=== PATIENT | female | born 1940 | race Caucasian/White ===

== ENCOUNTER 2016-08-11 18:56 | Emergency (ER) | payer MEDICARE ==
[2016-08-11 14:55] LABS: BASOPHILS 0.2 %; BASOPHILS ABSOLUTE 0.01 10/3/uL (0.0-0.16); EOSINOPHILS 1.7 %; EOSINOPHILS ABSOLUTE 0.07 10/3/uL (0.0-0.53); ER CBC TAT 0 Hrs 07 Mins; HEMATOCRIT 40.7 % (36.0-48.0); HEMOGLOBIN 13.1 g/dL (12.0-16.0); IMMATURE GRANULOCYTES 0.2 %; IMMATURE GRANULOCYTES ABSOLUTE 0.01 10/3/uL (0.0-0.11); LYMPHOCYTES 20.6 %; LYMPHOCYTES ABSOLUTE 0.87 10/3/uL (0.67-4.30); MEAN CORPUS HGB CONC 32.2 g/dL (32.0-36.0); MEAN CORPUSCULAR HEMOGLOB 30.5 pg (26.0-34.0); MEAN CORPUSCULAR VOLUME 94.9 fL (80-100); MEAN PLATELET VOLUME 9.6 fL (9.2-13.0); MONOCYTES 6.2 %; MONOCYTES ABSOLUTE 0.26 10/3/uL (0.21-1.20); NEUTROPHILS 71.1 %; PLATELET COUNT 107 10/3/uL (150-400); RBC DISTRIBUTION WIDTH 14.8 % (12.0-16.0); RED CELL COUNT 4.29 10/6/uL (4.0-5.6); WHITE BLOOD CELLS 4.2 10/3/uL (4.5-10.5)
[2016-08-11 14:56] LABS: MANUAL DIFF NO %
[2016-08-11 15:03] LABS: INTERNATIONAL NORMAL RATI 1.2 UNITS (-); PARTIAL THROMBO TIME 27.8 SEC (22.5-37.2); PROTIME (NOT ORD) 14.6 SEC (12.0-14.5)
[2016-08-11 15:11] LABS: BUN (BLOOD UREA NITROGEN) 24 MG/DL (6-23); CALCIUM, SERUM 8.3 MG/DL (8.5-10.4); CHEST PAIN PROFILE TAT 0 Hrs 23 Mins; CHLORIDE, SERUM 107 MMOL/L (96-112); CO2 (CARBON DIOXIDE) 28 MMOL/L (24-34); CREATININE 1.11 MG/DL (0.55-1.02); GFR AFRICAN AMERICAN 56 ML/MIN (>=60); GFR NON AFRICAN AMERICAN 49 ML/MIN (>=60); GLUCOSE, SERUM 94 MG/DL (60-99); POTASSIUM, SERUM 3.8 MMOL/L (3.5-5.3); SODIUM, SERUM 143 MMOL/L (135-148); TROPONIN I 0.02 NG/ML (<0.05)
[~2016-08-11 18:56] MED LIST: ALAVERT10 MG PO; ASAB PO; B121000P IM; CAT1 PO; CENTRUM PO; CENTRUM SILVER PO; CORDARONE PO; CYMBALTA30 PO; CYMBALTA60 PO; FERREX 150150 MG PO; HYOMAX-FT0.125 MG PO; HYOMAX-SL0.125 MG PO; KLONO1 PO; L20 PO; LEVOTHYROXIN50 MCG PO; LIPITOR10 PO; LOP25 PO; LOTEMAX OPH SUSP5 ML OPH; MAX25 PO; MELA3 PO; METAMUCIL CAN7 OZ PO; MIRALAXPKT PO; PACERONE100 MG PO; PAXIL40 MG PO; PRILO PO; PROAIR HFA INH; REQUIP5 PO; SYMBICORT 160/41 INH INH; T PO; TRAZ100 PO; TRAZ50 PO; TRAZODONE150 MG PO; VITAMIN B-122500 MCG SL; VITAMIN D1000 UNI1 PO
[2017-01-23] MEDS ORDERED: PRIN2.5 PO (16:33)
[2017-01-23] MEDS ORDERED: VITAMIN B-122500 MCG SL (16:34)
== END 2016-08-11 20:16 | disposition home or self-care (01) ==
LOC: ER 18:56
PROVIDERS: Hospitalist
DX: I95.9 Hypotension, unspecified (principal); I48.91 Unspecified atrial fibrillation; Z88.0 Allergy status to penicillin; Z88.2 Allergy status to sulfonamides; Z88.1 Allergy status to other antibiotic agents; Z88.8 Allergy status to other drugs, medicaments and biological substances; Z79.899 Other long term (current) drug therapy
CPT/HCPCS: 71020; 80048; 83735; 84484; 85025; 85610; 85730; 93005; 99285

== ENCOUNTER 2016-08-27 08:15 | Inpatient (IN) | payer MEDICARE ==
--- NOTE | ~2016-08-27 | CN ---
Consultation Report [facility] [address] [place]. [address] NAME: OTF HILL : 40 STATUS : ADM IN [facility]#: [id number] AGE: 75 ADM/REG DATE : 08/27/16 MR#: [id number] REPORT SERV DATE: 08/28/16 DICTATED BY: TOBIAS AGUSTIN DATE: 08/28/16 REPORT STATUS : Draft TRANSCRIBED BY: MODL DATE: 08/28/16 CARDIOLOGY CONSULTATION DATE OF CONSULTATION: 08/28/2016 PRIMARY SECRETARY TO THE VICE PRESIDENT: Tobias Agustin MD RIVET HEATER: Dr. Pearson. CHIEF COMPLAINT: Shortness of breath. REASON FOR ADMISSION: Shortness of breath. SOURCE: Patient chart. HISTORY OF PRESENT ILLNESS: Ms. Hill is a very pleasant 75-year-old white woman with history of ventricular tachycardia, atrial flutter, and AVNRT, status post ablation by Dr. Pearson and ICD placement. She also has hypertrophic cardiomyopathy. She was in her usual state of health when I saw her on 08/25/2016. Since that time, she has had increasing shortness of breath and faster heart rate, not much cough. She has noticed some wheezing and ankle swelling. She has been losing weight. She denies any fever or chills. She has had some palpitations, but no syncope. She has been dizzy. No chest pain. She came to [facility], was found to have acute respiratory insufficiency, and was hospitalized in ICU and seen by Dr. Braga of Pulmonary Critical Care Medicine. She was given antibiotic therapy and diuretics. She is improved a little bit. REVIEW OF SYSTEMS: All other systems are negative. ALLERGIES: PENICILLIN, SULFA, ASPIRIN, ERYTHROMYCIN, METOPROLOL, AND DIPHENHYDRAMINE. MEDICATIONS: At home, included Artificial Tears, atorvastatin, cholecalciferol, clonazepam, cyanocobalamin, duloxetine, famotidine, iron, melatonin, polyethylene glycol, Ropinirole, sotalol 40 b.i.d., trazodone, CertaVite, and Tesfaye. CARDIAC RISK FACTORS: Not really any cardiac risk factors other than hyperlipidemia. PAST MEDICAL HISTORY: Includes SVT and atrial flutter, atypical, status post ablations by Dr. Pearson; ventricular tachycardia, status post ICD placement; hypertrophic cardiomyopathy; aortic insufficiency mild to moderate by most recent echo with normal LV systolic function; hypothyroidism; orthostatic hypotension; hyperlipidemia. She had only mild irregularities of catheterization in 2008. SOCIAL HISTORY: Never smoker. Denies any alcohol. Lives in [facility]. . Consultation Report [address] [place]. [address] NAME: OTF HILL : 40 STATUS : ADM IN [facility]#: [id number] AGE: 75 ADM/REG DATE : 08/27/16 MR#: [id number] REPORT SERV DATE: 08/28/16 DICTATED BY: TOBAIS AGUSTIN DATE: 08/28/16 REPORT STATUS : Draft TRANSCRIBED BY: FRANKLYN DATE: 08/28/16 One son, who is alive and well. She is retired. FAMILY HISTORY: Negative for coronary disease at young age. PHYSICAL EXAMINATION: GENERAL: She is a well-developed, well-nourished, elderly white woman, appearing acutely ill, in no acute distress. VITAL SIGNS: Blood pressure of 125/66, pulse 69, temperature 97.9, weight is 73 kilos. HEENT: Sclerae anicteric. Lips without cyanosis. NECK: Carotids 2+ and symmetrical. No bruits. No JVD. No thyromegaly. LUNGS: Wheezes and rhonchi throughout. Diminished breath sounds at bases. No use of accessory muscles. She is on a Vapotherm with 30 L oxygen. HEART: Regular rate and rhythm, 2/6 systolic murmur. No heaves or thrills. ABDOMEN: Positive bowel sounds. Soft, nontender. EXTREMITIES: Pulses 2+ and symmetrical. No cyanosis, clubbing, or edema. BACK: No CVA tenderness. MUSCULOSKELETAL: Good tone. NEURO: Alert and oriented x3. EKG reveals atrial sensed, V-paced rhythm with prolonged AV conduction. LABORATORY EXAMINATION: Includes a BNP level of 1621, CPK 51, troponin of 0.04. The chest x ray revealing worsening bilateral perihilar and lower lobe consolidation and pleural effusions with underlying cardiomegaly, Strep pneumoniae antigen is negative, Legionella antigen urine is negative. Urinalysis; specific gravity 1.026, pH 5.0, hazy, moderate blood, small leukocyte esterase, negative nitrate, rbc's 20, wbc's 5, bacteria rare. Blood gas; pH 7.45, pCO2 35, PO2 240, oxygen saturation 99%. Sodium 140, potassium 3.9, chloride 109, CO2 27, glucose 142, BUN 21, creatinine 1.32. CBC: White count 13.3, hemoglobin 13.9, hematocrit 41.7, platelets 105,000. Lactate 1.3. The CTA of the chest revealed diffuse bilateral infiltrate and consolidation consistent with pneumonia, could obscure visualization of other possible underlying abnormalities, bilateral pleural fluid, pericardial fluid, slight cardiomegaly, nonspecific mediastinal lymph nodes less than 1 cm. IMPRESSION: 1. Suspect bilateral pneumonia by CT scan. 2. Congestive heart failure, acute on chronic diastolic dysfunction. Last LVEF was normal in 2016 by echo. 3. Atrial flutter and AVNRT, status post ablation by Dr. Pearson. 4. Status post ICD placement [employer]annie device for ventricular tachycardia. 5. Mfcd-tj-gwirdhrd aortic insufficiency by last echo. 6. Hypertrophic cardiomyopathy. 7. Acute kidney injury. 8. Acute respiratory insufficiency, on Vapotherm. RECOMMENDATIONS: Consultation Report [address] [address] NAME: OTF HILL : 40 STATUS : ADM IN [facility]#: [id number] AGE: 75 ADM/REG DATE : 08/27/16 MR#: [id number] REPORT SERV DATE: 08/28/16 DICTATED BY: TOBIAS AGUSTIN DATE: 08/28/16 REPORT STATUS : Draft TRANSCRIBED BY: NATALYAL DATE: 08/28/16 1. Treat possible pneumonia per ICU team. 2. Cautious diuresis, avoid volume depletion. 3. Check echocardiogram, this has been done, but not yet read. 4. ICD check with [employer]. 5. Supplemental oxygen. 6. Further recommendations following above. BN/MODL Tobias Agustin M.D. / [id number] CC: MD Arsen Mitchell M.D.
--- NOTE | ~2016-08-27 | HP ---
History And Physical [address] [place]. [address] NAME: OTF WEBBER : 40 STATUS : ADM IN PAT#: [id number] AGE: 75 ADM/REG DATE : 08/27/16 MR#: [id number] REPORT SERV DATE: 08/27/16 DICTATED BY: PARRIS ANDREWS DATE: 08/27/16 REPORT STATUS : Draft TRANSCRIBED BY: MODAzeb DATE: 08/27/16 DATE OF ADMISSION: 08/27/2016 CHIEF COMPLAINT: Shortness of breath. HISTORY OF PRESENT ILLNESS: The patient is a 75-year-old female with a past medical history of ventricular tachycardia, status post ICD, pacemaker placement also with paroxysmal atrial tachycardia, who is admitted to the hospital with complaints of shortness of breath. The patient says that she was in her usual state of health until approximately two days ago when she began having some shortness of breath. This has increased over the last two days to the point where she was short of breath at baseline and decided to come here to the emergency room. She notes a cough that has really been nonproductive, though she says she can feel some phlegm getting caught in her throat. She has been unable to expectorate any of that. She denies any real significant chest pain. She denies any fevers, chills, or sweats. She denies sick contacts or recent travel. She does endorse that when she lies flat, she gets short of breath and she reports no increase and stable mild chronic lower extremities edema, for which she wears compression stockings. She says the only thing of note was that last Sunday, her carpenter form switched her from amiodarone to Betapace. Otherwise, she cannot think of anything remarkable that happened in the last week or two. In the emergency room here, she was found to be hypoxic and was placed on non-rebreather, but eventually had to be transitioned over to BiPAP. She has a chest CT that shows bilateral diffuse evidence of airspace disease with bilateral pleural effusions. She is being admitted to the CCU for further management. PAST MEDICAL HISTORY: 1. History of ventricular tachycardia, status post ICD placement. 2. History of paroxysmal atrial tachycardia. 3. Hyperlipidemia. 4. Hypothyroidism. 5. Gastroesophageal reflux disease. 6. History of depression. 7. Restless legs syndrome. 8. Chronic anxiety. ALLERGIES: INCLUDE PENICILLIN, SULFA, AND ASPIRIN, WELL ERYTHROMYCIN, METOPROLOL, AND DIPHENHYDRAMINE. HOME MEDICATIONS: Include: 1. Requip 0.5 mg p.o. at bedtime. 2. Trazodone 100 mg p.o. at bedtime. 3. Clonazepam 0.5 mg p.o. at bedtime as needed. 4. Clonazepam 0.5 mg at bedtime schedule. 5. Sotalol 40 mg p.o. twice daily. 6. Cymbalta 60 mg p.o. twice daily. 7. Ferrex 150 mg p.o. twice daily. 8. Melatonin 5 mg p.o. at bedtime. History And Physical [address] [address] NAME: OTF WEBBER : 40 STATUS : ADM IN [facility]#: [id number] AGE: 75 ADM/REG DATE : 08/27/16 MR#: [id number] REPORT SERV DATE: 08/27/16 DICTATED BY: PARRIS ANDREWS DATE: 08/27/16 REPORT STATUS : Draft TRANSCRIBED BY: FRANKLYN DATE: 08/27/16 9. Pepcid 20 mg p.o. daily. 10.Vitamin D 4000 units p.o. at bedtime. 11.Vitamin B12 2500 mcg sublingual at bedtime. 12.MiraLAX powder 1 packet daily as needed. 13.Lipitor 10 mg p.o. at bedtime. SOCIAL HISTORY: No tobacco, alcohol, or IV drug abuse. FAMILY HISTORY: Reviewed and negative for coronary disease or intrinsic lung disease. PHYSICAL EXAMINATION: VITAL SIGNS: Temperature 98.9, heart rate 70, respiratory rate 25, blood pressure 122/64. GENERAL: No acute distress, resting on BiPAP, elderly-appearing female. HEENT: Pupils equal, round, and reactive to light. Extraocular movements intact. NECK: Supple. Nontender. No lymphadenopathy. No thyromegaly. No jugular venous distention. LUNGS: Coarse crackles bilaterally. No wheezes. CARDIOVASCULAR: Regular rate and rhythm. No murmurs, rubs, or gallops. ABDOMEN: Soft, nontender, nondistended. Positive bowel sounds. No hepatosplenomegaly. EXTREMITIES: Trace pitting edema in bilateral lower extremities and feet. NEURO: Alert and oriented x3. Cranial nerves appear intact. PSYCH: Mood appropriate. LABS AND IMAGING: Urinalysis with trace leukocyte esterase, otherwise unremarkable. Chest x ray shows diffuse bilateral interstitial edema or infiltrate with some left basilar atelectasis and AICD placement. D-dimer 2.53, BNP 1621. Metabolic profile remarkable for creatinine of 1.2. Lipase 60. White blood cell count 7.9 with 86% neutrophils. Influenza screen negative. CT angiogram of her chest shows diffuse bilateral patchy airspace disease with bilateral pleural effusions. ABG with a pH 7.32, pCO2 of 38, pO2 of 88 on 80% FiO2 on BiPAP. ASSESSMENT AND PLAN: The patient is a 75-year-old female with past medical history of paroxysmal atrial tachycardia, ventricular tachycardia, status post automatic implantable cardioverter-defibrillator placement, who presents with two days of shortness of breath, nonproductive cough, found to have acute hypoxic respiratory failure with diffuse bilateral airspace disease and bilateral pleural effusions. I performed a bedside lung ultrasound as well as echocardiogram, which showed an ejection fraction by my estimate of greater than 40%. Her lung exam on ultrasound showed bilateral B-lines, left greater than right with bilateral pleural effusions, left greater than right with bibasilar consolidation. She also had some small areas of subpleural consolidation bilaterally as well with good lung sliding and some areas of spared lung. Her lung ultrasound is consistent with a mixed picture of cardiogenic pulmonary edema in addition to acute respiratory distress syndrome. Given that there is a component of cardiogenic pulmonary edema, we will continue BiPAP for now overnight. We will continue diuresis in an attempt to improve her respiratory status. We will also cover empirically with antibiotics for community-acquired pneumonia and acute respiratory distress syndrome. We will put her on azithromycin and Rocephin and check a procalcitonin as well as a sputum culture and blood cultures. We will also get a urine History And Physical [address] [address] NAME: OTF WEBBER NOAH : 40 STATUS : ADM IN [facility]#: [id number] AGE: 75 ADM/REG DATE : 08/27/16 MR#: [id number] REPORT SERV DATE: 08/27/16 DICTATED BY: PARRIS ANDREWS DATE: 08/27/16 REPORT STATUS : Draft TRANSCRIBED BY: FRANKLYN DATE: 08/27/16 Legionella antigen and urine Strep pneumo antigen. We will get a formal echocardiogram in the morning and trend her cardiac markers q.8 hours x3. If she improves, we will try to transition her from BiPAP to Vapotherm when she is able to tolerate. We will also place her on steroids for severe community-acquired pneumonia with acute respiratory distress syndrome. The patient has a high probability of sudden, clinically significant, or life- threatening deterioration in her condition and I would have a low threshold to intubate the patient should her respiratory status worsen. I have discussed this with the patient and she is agreeable to be intubated should she require that. She will be on heparin for deep vein thrombosis prophylaxis and Protonix for gastrointestinal prophylaxis. Total critical care time spent on this patient was 40 minutes. HUBERT/FRANKLYN Parris Andrews MD / [id number] CC: MD Arsen Mitchell M.D.
--- NOTE | ~2016-08-27 | DS ---
Discharge Summary [facility] [address] [place]. [address] NAME: OTF WEBBER : 40 STATUS : DIS IN PAT#: [id number] AGE: 75 ADM/REG DATE : 08/27/16 MR#: [id number] REPORT SERV DATE: 09/02/16 DICTATED BY: JOON LIVINGSTON DATE: 09/02/16 REPORT STATUS : Draft TRANSCRIBED BY: MODL DATE: 09/02/16 ADMISSION DATE: 08/27/2016 DISCHARGE DATE: 09/02/2016 DISCHARGE DIAGNOSES: 1. Atypical bilateral pneumonia. 2. Acute on chronic diastolic congestive heart failure. 3. Pulmonary edema. 4. Acute hypoxic respiratory failure. 5. Atrial flutter. 6. Hypertrophic cardiomyopathy. 7. Acute kidney injury. 8. The patient has implantable cardiac defibrillator. CONSULTS: 1. Critical Care. 2. Cardiology. PROCEDURES AND IMAGING: Echocardiogram performed on 08/28/2016 showed a normal LV systolic function with ejection fraction of 55%. The patient did have asymmetric septal moderate hypertrophy. The patient also had moderate diastolic dysfunction. This was not a significant change compared to previous echocardiogram one year ago. HOSPITAL COURSE: This is a 75-year-old lady who was admitted to the hospital with acute hypoxic respiratory failure. For details, please refer to H and P by Dr. Braga. In summary, the patient was admitted to the intensive care unit as the patient required BiPAP support. The patient stayed in the intensive care unit for three days before the patient was transferred out on Vapotherm. The patient never required mechanical ventilation. The patient was treated empirically for community-acquired pneumonia as well as diastolic congestive heart failure. Of note, the patient has had normal white blood cell count as well as negative procalcitonin level throughout the hospital stay. I assumed care of this patient on 08/30/2016. At that time, the patient remained on Vapotherm. Over the last few days of hospital stay, the patient showed a very rapid improvement of her symptoms overall. The patient was actually able to come off the oxygen entirely the day prior to discharge and she remained off oxygen until the day of discharge. The patient was actually evaluated for home oxygen and the patient passed home O2 eval with flying colors. It is still not entirely clear what really caused her to decompensate so rapidly, but now that the patient has completed a week's course of antibiotic therapy and after much clinical improvement, it was felt that the patient was appropriate for discharge home with close outpatient followup. DISPOSITION: Home. DISCHARGE MEDICATIONS: No changes. FOLLOWUP: Please follow up with PCP in the next one to two weeks. Discharge Summary [address] [place]. [address] NAME: OTF WEBBER : 40 STATUS : DIS IN PAT#: [id number] AGE: 75 ADM/REG DATE : 08/27/16 MR#: [id number] REPORT SERV DATE: 09/02/16 DICTATED BY: JOON LIVINGSTON DATE: 09/02/16 REPORT STATUS : Draft TRANSCRIBED BY: FRANKLYN DATE: 09/02/16 TIME: Total of 40 minutes spent in coordinating this patient's discharge today. MALINDA/FRANKLYN Joon Livingston MD / [id number] CC: MD Arsen Mitchell M.D.
[2016-08-27 08:35] LABS: ALLENS TEST Pos; BE (BASE EXCESS) -2.2 MEQ/L (0 +/- 2.5); CARBOXYHEMOGLOBIN 1.2 % (0-3); HEMOBLOGIN CONTENT 13.7 G/DL (12-16); INSTRUMENT SERIAL # 8087; METHEMOGLOBIN 0.3 % (0-3); O2 CONTENT 15.4 VOL% (18-24); OPERATOR ID 32214; PCO2 (CO2 TENSION) 36 MMHG (35-45); PO2 (O2 TENSION) 47 MMHG (79-93); SAMPLE Arterial
[2016-08-27 09:24] LABS: BASOPHILS 0.5 %; BASOPHILS ABSOLUTE 0.04 10/3/uL (0.0-0.16); EOSINOPHILS 0.1 %; EOSINOPHILS ABSOLUTE 0.01 10/3/uL (0.0-0.53); HEMATOCRIT 41.8 % (36.0-48.0); HEMOGLOBIN 13.4 g/dL (12.0-16.0); IMMATURE GRANULOCYTES 0.1 %; IMMATURE GRANULOCYTES ABSOLUTE 0.01 10/3/uL (0.0-0.11); LYMPHOCYTES 9.1 %; LYMPHOCYTES ABSOLUTE 0.72 10/3/uL (0.67-4.30); MEAN CORPUS HGB CONC 32.1 g/dL (32.0-36.0); MEAN CORPUSCULAR HEMOGLOB 29.9 pg (26.0-34.0); MEAN CORPUSCULAR VOLUME 93.3 fL (80-100); MEAN PLATELET VOLUME 10.4 fL (9.2-13.0); MONOCYTES 3.9 %; MONOCYTES ABSOLUTE 0.31 10/3/uL (0.21-1.20); NEUTROPHILS 86.3 %; NEUTROPHILS ABSOLUTE 6.83 10/3/uL (2.02-8.40); PLATELET COUNT 124 10/3/uL (150-400); RBC DISTRIBUTION WIDTH 15.3 % (12.0-16.0); RED CELL COUNT 4.48 10/6/uL (4.0-5.6)
[2016-08-27 09:25] LABS: MANUAL DIFF NO %; WHITE BLOOD CELLS 7.9 10/3/uL (4.5-10.5)
[2016-08-27 09:29] LABS: ASCORBIC ACID (UR NOT ORDER) 40 (NEG); BILIRUBIN, URINE NEGATIVE (NEG); ER URINALYSIS TAT 0 Hrs 08 Mins; KETONE, URINE TRACE MG/DL (NEG); LEUKOCYTE ESTERASE(NOT OR TRACE (NEG); NITRITE (URINE) NEG (NEG); WBC (NOT ORDERED) (RFLEX) 3 (0-5)
[2016-08-27 09:38] LABS: INTERNATIONAL NORMAL RATI 1.2 UNITS (-); PROTIME (NOT ORD) 15.1 SEC (12.0-14.5)
[2016-08-27 09:42] LABS: CALCIUM, SERUM 8.7 MG/DL (8.5-10.4); CHEST PAIN PROFILE TAT 0 Hrs 21 Mins; CHLORIDE, SERUM 111 MMOL/L (96-112); CO2 (CARBON DIOXIDE) 25 MMOL/L (24-34); GFR AFRICAN AMERICAN 51 ML/MIN (>=60); GFR NON AFRICAN AMERICAN 44 ML/MIN (>=60); GLUCOSE, SERUM 110 MG/DL (60-99); POTASSIUM, SERUM 4.2 MMOL/L (3.5-5.3); SODIUM, SERUM 146 MMOL/L (135-148); TROPONIN I 0.03 NG/ML (<0.05)
[2016-08-27 09:44] LABS: BUN (BLOOD UREA NITROGEN) 17 MG/DL (6-23)
[2016-08-27 09:46] LABS: B NATRIURETIC PEPTIDE (BNP) 1621.2 PG/ML (< 100.0)
[2016-08-27 11:10] LABS: INFLUENZA A SCREEN NEGATIVE (NEGATIVE); INFLUENZA B SCREEN NEGATIVE (NEGATIVE)
[2016-08-27] MEDS ORDERED: REQUIP5 PO (13:13)
[2016-08-27] MEDS ORDERED: TRAZ100 PO (13:13)
[2016-08-27] MEDS ORDERED: B121000P IM (13:13)
[2016-08-27] MEDS ORDERED: KLONO5 PO ×2 (13:14)
[2016-08-27] MEDS ORDERED: FERREX 150150 MG PO (13:15)
[2016-08-27] MEDS ORDERED: BETAPACE80 PO ×2 (13:15)
[2016-08-27] MEDS ORDERED: CYMBALTA60 PO (13:15)
[2016-08-27] MEDS ORDERED: VITAMIN B-122500 MCG SL (13:16)
[2016-08-27] MEDS ORDERED: PEP20 PO (13:16)
[2016-08-27] MEDS ORDERED: CERTAVITE PO (13:16)
[2016-08-27] MEDS ORDERED: VITAMIN D2000 UNIT PO (13:16)
[2016-08-27] MEDS ORDERED: MELATONIN5 M1 PO (13:16)
[2016-08-27] MEDS ORDERED: MIRALAX POWDER1 PKT PO (13:17)
[2016-08-27] MEDS ORDERED: TEARS PURE OPH (13:18)
[2016-08-27] MEDS ORDERED: MURO OPH (13:18)
[2016-08-27] MEDS ORDERED: LIPITOR10 PO (13:22)
[2016-08-27 13:23] LABS: ALLENS TEST Pos; BE (BASE EXCESS) -6.4 MEQ/L (0 +/- 2.5); BIPAP 16/8 cm.H2O; CARBOXYHEMOGLOBIN 1.3 % (0-3); HEMOBLOGIN CONTENT 15.5 G/DL (12-16); INSTRUMENT SERIAL # 8087; METHEMOGLOBIN 0.3 % (0-3); O2 CONTENT 20.6 VOL% (18-24); OPERATOR ID 32214; PCO2 (CO2 TENSION) 38 MMHG (35-45); PO2 (O2 TENSION) 88 MMHG (79-93); SAMPLE Arterial; pH 7.32 (7.37-7.43)
[2016-08-27 17:43] LABS: PROCALCITONIN 0.07 ng/mL (<0.5)
[2016-08-27 18:08] LABS: ALBUMIN 3.7 G/DL (3.5-5.0); FREE T4 1.17 NG/DL (0.76-1.46); SGOT(AST) 43 U/L (5-40); SGPT(ALT) 60 U/L (5-65); TOTAL BILIRUBIN 0.8 MG/DL (0-1.2); TOTAL PROTEIN 7.2 G/DL (6.0-8.5)
[2016-08-27 18:10] LABS: A/G RATIO 1.1 (0.7-1.9); ALKALINE PHOSPHATASE 93 U/L (45-117); FOLATE 60.3 NG/ML (>5.2); GLOBULIN 3.5 G/DL (2.5-4.1)
[2016-08-27 18:17] LABS: TROPONIN I 0.05 NG/ML (<0.05)
[2016-08-28 01:16] LABS: CPK 46 U/L (0-200); TROPONIN I 0.06 NG/ML (<0.05)
[2016-08-28 01:22] LABS: BASOPHILS 0 %; EOSINOPHILS 0 %; HEMATOCRIT 41.7 % (36.0-48.0); HEMOGLOBIN 13.9 g/dL (12.0-16.0); IMMATURE GRANULOCYTES 0.4 %; IMMATURE GRANULOCYTES ABSOLUTE 0.05 10/3/uL (0.0-0.11); MANUAL DIFF NO %; MEAN CORPUS HGB CONC 33.3 g/dL (32.0-36.0); MEAN CORPUSCULAR HEMOGLOB 30.6 pg (26.0-34.0); MEAN CORPUSCULAR VOLUME 91.9 fL (80-100); MEAN PLATELET VOLUME 10.2 fL (9.2-13.0); MONOCYTES 2.6 %; MONOCYTES ABSOLUTE 0.34 10/3/uL (0.21-1.20); NEUTROPHILS ABSOLUTE 12.54 10/3/uL (2.02-8.40); PLATELET COUNT 105 10/3/uL (150-400); RBC DISTRIBUTION WIDTH 15.1 % (12.0-16.0); RED CELL COUNT 4.54 10/6/uL (4.0-5.6); WHITE BLOOD CELLS 13.3 10/3/uL (4.5-10.5)
[2016-08-28 01:43] LABS: BUN (BLOOD UREA NITROGEN) 21 MG/DL (6-23); CALCIUM, SERUM 8.4 MG/DL (8.5-10.4); CHLORIDE, SERUM 109 MMOL/L (96-112); CO2 (CARBON DIOXIDE) 27 MMOL/L (24-34); CREATININE 1.32 MG/DL (0.55-1.02); GFR AFRICAN AMERICAN 46 ML/MIN (>=60); GFR NON AFRICAN AMERICAN 39 ML/MIN (>=60); GLUCOSE, SERUM 142 MG/DL (60-99); PHOSPHORUS, SERUM 4.9 MG/DL (2.5-4.5); POTASSIUM, SERUM 3.9 MMOL/L (3.5-5.3); SODIUM, SERUM 145 MMOL/L (135-148)
[2016-08-28 03:37] LABS: ALLENS TEST Pos; BIPAP 16/8 cm.H2O; CARBOXYHEMOGLOBIN 0.3 % (0-3); HCO3 (ACTUAL BICARBONATE) 23.5 MEQ/L (23-27); HEMOBLOGIN CONTENT 13.8 G/DL (12-16); INSTRUMENT SERIAL # 35151; METHEMOGLOBIN 0.8 % (0-3); O2 CONTENT 19.6 VOL% (18-24); OPERATOR ID 17370; PCO2 (CO2 TENSION) 35 MMHG (35-45); PO2 (O2 TENSION) 240 MMHG (79-93); SAMPLE Arterial; pH 7.45 (7.37-7.43)
[2016-08-28 05:02] LABS: ASCORBIC ACID (UR NOT ORDER) NEG (NEG); BILIRUBIN, URINE NEGATIVE (NEG); KETONE, URINE NEGATIVE (NEG); LEUKOCYTE ESTERASE(NOT OR SMALL (NEG); WBC (NOT ORDERED) (RFLEX) 5 (0-5)
[2016-08-28 09:44] LABS: TROPONIN I 0.04 NG/ML (<0.05)
[2016-08-28 10:38] LABS: GLYCOHEMOGLOBIN (HbA1c) 5.4 % (4.7-6.1)
[2016-08-29 09:12] LABS: CALCIUM, SERUM 8.4 MG/DL (8.5-10.4); CHLORIDE, SERUM 104 MMOL/L (96-112); CO2 (CARBON DIOXIDE) 25 MMOL/L (24-34); CREATININE 1.18 MG/DL (0.55-1.02); GFR AFRICAN AMERICAN 52 ML/MIN (>=60); GFR NON AFRICAN AMERICAN 45 ML/MIN (>=60); SODIUM, SERUM 139 MMOL/L (135-148)
[2016-08-29 09:14] LABS: BUN (BLOOD UREA NITROGEN) 32 MG/DL (6-23); GLUCOSE, SERUM 175 MG/DL (60-99); POTASSIUM, SERUM 3.5 MMOL/L (3.5-5.3)
[2016-08-30 05:46] LABS: BUN (BLOOD UREA NITROGEN) 31 MG/DL (6-23); CALCIUM, SERUM 8.4 MG/DL (8.5-10.4); CHLORIDE, SERUM 106 MMOL/L (96-112); CREATININE 1.08 MG/DL (0.55-1.02); GFR AFRICAN AMERICAN 58 ML/MIN (>=60); GFR NON AFRICAN AMERICAN 50 ML/MIN (>=60); POTASSIUM, SERUM 3.3 MMOL/L (3.5-5.3); SODIUM, SERUM 144 MMOL/L (135-148)
[2016-08-30 05:52] LABS: CO2 (CARBON DIOXIDE) 30 MMOL/L (24-34); GLUCOSE, SERUM 104 MG/DL (60-99)
[2016-08-31 05:17] LABS: BASOPHILS 0 %; EOSINOPHILS 1.2 %; EOSINOPHILS ABSOLUTE 0.08 10/3/uL (0.0-0.53); HEMATOCRIT 38.7 % (36.0-48.0); HEMOGLOBIN 12.6 g/dL (12.0-16.0); IMMATURE GRANULOCYTES 0.3 %; IMMATURE GRANULOCYTES ABSOLUTE 0.02 10/3/uL (0.0-0.11); LYMPHOCYTES 19.9 %; LYMPHOCYTES ABSOLUTE 1.29 10/3/uL (0.67-4.30); MEAN CORPUS HGB CONC 32.6 g/dL (32.0-36.0); MEAN CORPUSCULAR HEMOGLOB 30.2 pg (26.0-34.0); MEAN CORPUSCULAR VOLUME 92.8 fL (80-100); MEAN PLATELET VOLUME 9.9 fL (9.2-13.0); MONOCYTES 8.9 %; MONOCYTES ABSOLUTE 0.58 10/3/uL (0.21-1.20); NEUTROPHILS 69.7 %; NEUTROPHILS ABSOLUTE 4.52 10/3/uL (2.02-8.40); PLATELET COUNT 116 10/3/uL (150-400); RBC DISTRIBUTION WIDTH 15.1 % (12.0-16.0); RED CELL COUNT 4.17 10/6/uL (4.0-5.6)
[2016-08-31 05:21] LABS: MANUAL DIFF NO %; WHITE BLOOD CELLS 6.5 10/3/uL (4.5-10.5)
[2016-08-31 05:30] LABS: CALCIUM, SERUM 8.4 MG/DL (8.5-10.4); CHLORIDE, SERUM 109 MMOL/L (96-112); CO2 (CARBON DIOXIDE) 30 MMOL/L (24-34); CREATININE 1.03 MG/DL (0.55-1.02); GFR AFRICAN AMERICAN 62 ML/MIN (>=60); GFR NON AFRICAN AMERICAN 53 ML/MIN (>=60); GLUCOSE, SERUM 89 MG/DL (60-99); SODIUM, SERUM 145 MMOL/L (135-148)
[2016-08-31 05:32] LABS: BUN (BLOOD UREA NITROGEN) 24 MG/DL (6-23); POTASSIUM, SERUM 4.7 MMOL/L (3.5-5.3)
[2016-09-01 06:03] LABS: BASOPHILS 0.2 %; BASOPHILS ABSOLUTE 0.01 10/3/uL (0.0-0.16); EOSINOPHILS 3.4 %; HEMATOCRIT 41.7 % (36.0-48.0); HEMOGLOBIN 13.4 g/dL (12.0-16.0); IMMATURE GRANULOCYTES 0.7 %; IMMATURE GRANULOCYTES ABSOLUTE 0.04 10/3/uL (0.0-0.11); LYMPHOCYTES 16.2 %; LYMPHOCYTES ABSOLUTE 0.95 10/3/uL (0.67-4.30); MEAN CORPUS HGB CONC 32.1 g/dL (32.0-36.0); MEAN CORPUSCULAR HEMOGLOB 29.8 pg (26.0-34.0); MEAN CORPUSCULAR VOLUME 92.7 fL (80-100); MEAN PLATELET VOLUME 9.6 fL (9.2-13.0); MONOCYTES 8.9 %; MONOCYTES ABSOLUTE 0.52 10/3/uL (0.21-1.20); NEUTROPHILS 70.6 %; NEUTROPHILS ABSOLUTE 4.15 10/3/uL (2.02-8.40); PLATELET COUNT 111 10/3/uL (150-400); RBC DISTRIBUTION WIDTH 14.9 % (12.0-16.0); WHITE BLOOD CELLS 5.9 10/3/uL (4.5-10.5)
[2016-09-01 06:06] LABS: MANUAL DIFF NO %
[2016-09-01 06:11] LABS: CALCIUM, SERUM 8.9 MG/DL (8.5-10.4); CHLORIDE, SERUM 109 MMOL/L (96-112); CO2 (CARBON DIOXIDE) 27 MMOL/L (24-34); CREATININE 1.04 MG/DL (0.55-1.02); GFR AFRICAN AMERICAN 61 ML/MIN (>=60); GFR NON AFRICAN AMERICAN 53 ML/MIN (>=60); GLUCOSE, SERUM 95 MG/DL (60-99); POTASSIUM, SERUM 4.5 MMOL/L (3.5-5.3); SODIUM, SERUM 143 MMOL/L (135-148)
[2016-09-01 06:16] LABS: BUN (BLOOD UREA NITROGEN) 18 MG/DL (6-23)
[2016-09-02 06:02] LABS: BUN (BLOOD UREA NITROGEN) 20 MG/DL (6-23); CHLORIDE, SERUM 109 MMOL/L (96-112); CO2 (CARBON DIOXIDE) 27 MMOL/L (24-34); CREATININE 1.19 MG/DL (0.55-1.02); GFR AFRICAN AMERICAN 52 ML/MIN (>=60); GFR NON AFRICAN AMERICAN 45 ML/MIN (>=60); GLUCOSE, SERUM 102 MG/DL (60-99); POTASSIUM, SERUM 4.5 MMOL/L (3.5-5.3); SODIUM, SERUM 144 MMOL/L (135-148)
[2016-09-02] MEDS ORDERED: FERREX 150150 MG PO (12:07)
[2017-01-23] MEDS ORDERED: PRIN2.5 PO (16:33)
[2017-01-23] MEDS ORDERED: VITAMIN B-122500 MCG SL (16:34)
== END 2016-09-02 13:56 | disposition home or self-care (01) | DRG 291 ==
LOC: ER 08:15 → CCU 14:24 → 6NO 08-29 11:08
PROVIDERS: Emergency Medicine; Internal Medicine; Internal Medicine Cardiovascular Disease; Nurse Practitioner Family
PROC: 5A09357 Assistance with Respiratory Ventilation, Less than 24 Consecutive Hours, Continuous Positive Airway Pressure (ICD-10-PCS; principal; 2016-08-27)
PROC: 4B02XTZ Measurement of Cardiac Defibrillator, External Approach (ICD-10-PCS; 2016-08-28)
DX: I11.0 Hypertensive heart disease with heart failure (principal); J96.01 Acute respiratory failure with hypoxia; I47.2 Ventricular tachycardia; J18.9 Pneumonia, unspecified organism; N17.9 Acute kidney failure, unspecified; E86.9 Volume depletion, unspecified; I48.92 Unspecified atrial flutter; I35.1 Nonrheumatic aortic (valve) insufficiency; I47.1 Supraventricular tachycardia; I50.33 Acute on chronic diastolic (congestive) heart failure; I42.2 Other hypertrophic cardiomyopathy; E78.5 Hyperlipidemia, unspecified; E03.9 Hypothyroidism, unspecified; K21.9 Gastro-esophageal reflux disease without esophagitis; G25.81 Restless legs syndrome; F41.8 Other specified anxiety disorders; Z95.810 Presence of automatic (implantable) cardiac defibrillator; Z79.899 Other long term (current) drug therapy; Z88.0 Allergy status to penicillin; Z88.2 Allergy status to sulfonamides; Z88.6 Allergy status to analgesic agent; Z88.1 Allergy status to other antibiotic agents; Z88.8 Allergy status to other drugs, medicaments and biological substances
CPT/HCPCS: 36600; 71010; 71275; 80048; 80053; 81001; 82150; 82550; 82607; 82746; 82805; 83036; 83605; 83690; 83735; 83880; 84100; 84132; 84145; 84439; 84443; 84484; 85025; 85379; 85610; 85730; 87070; 87086; 87205; 87449; 87641; 87804; 93005; 93306; 94640; 94660; 96374; 96375; 97110-GP; 97116-GP; 97161-GP; 97165-GO; 99285; A9270-GY; C9113; G0463; J0456; J1956; J2920; J2930; Q9967

== ENCOUNTER 2016-09-11 17:57 | Emergency (ER) | payer MEDICARE ==
[2016-09-11 13:25] LABS: BASOPHILS 0.5 %; BASOPHILS ABSOLUTE 0.03 10/3/uL (0.0-0.16); EOSINOPHILS 1.4 %; EOSINOPHILS ABSOLUTE 0.09 10/3/uL (0.0-0.53); HEMATOCRIT 40.5 % (36.0-48.0); HEMOGLOBIN 13.1 g/dL (12.0-16.0); IMMATURE GRANULOCYTES 0.3 %; IMMATURE GRANULOCYTES ABSOLUTE 0.02 10/3/uL (0.0-0.11); LYMPHOCYTES 15.6 %; LYMPHOCYTES ABSOLUTE 1.04 10/3/uL (0.67-4.30); MEAN CORPUS HGB CONC 32.3 g/dL (32.0-36.0); MEAN CORPUSCULAR HEMOGLOB 30.2 pg (26.0-34.0); MEAN CORPUSCULAR VOLUME 93.3 fL (80-100); MEAN PLATELET VOLUME 9.6 fL (9.2-13.0); MONOCYTES ABSOLUTE 0.53 10/3/uL (0.21-1.20); NEUTROPHILS 74.2 %; NEUTROPHILS ABSOLUTE 4.95 10/3/uL (2.02-8.40); RED CELL COUNT 4.34 10/6/uL (4.0-5.6); WHITE BLOOD CELLS 6.7 10/3/uL (4.5-10.5)
[2016-09-11 13:26] LABS: MANUAL DIFF NO %; PLATELET COUNT 162 10/3/uL (150-400)
[2016-09-11 13:33] LABS: INTERNATIONAL NORMAL RATI 1.1 UNITS (-); PARTIAL THROMBO TIME 27.4 SEC (22.5-37.2); PROTIME (NOT ORD) 14.3 SEC (12.0-14.5)
[2016-09-11 13:43] LABS: BUN (BLOOD UREA NITROGEN) 20 MG/DL (6-23); CALCIUM, SERUM 8.8 MG/DL (8.5-10.4); CHEST PAIN PROFILE TAT 0 Hrs 22 Mins; CHLORIDE, SERUM 110 MMOL/L (96-112); CO2 (CARBON DIOXIDE) 30 MMOL/L (24-34); CREATININE 1.12 MG/DL (0.55-1.02); GFR AFRICAN AMERICAN 56 ML/MIN (>=60); GFR NON AFRICAN AMERICAN 48 ML/MIN (>=60); GLUCOSE, SERUM 99 MG/DL (60-99); SODIUM, SERUM 144 MMOL/L (135-148); TROPONIN I 0.03 NG/ML (<0.05)
[~2016-09-11 17:57] MED LIST changes: +BETAPACE80 PO; +CERTAVITE PO; +KLONO5 PO; +MELATONIN5 M1 PO; +MIRALAX POWDER1 PKT PO; +MURO OPH; +PEP20 PO; +TEARS PURE OPH; +VITAMIN D2000 UNIT PO
[2017-01-23] MEDS ORDERED: PRIN2.5 PO (16:33)
[2017-01-23] MEDS ORDERED: VITAMIN B-122500 MCG SL (16:34)
== END 2016-09-11 18:53 | disposition home or self-care (01) ==
LOC: ER 17:57
PROVIDERS: Emergency Medicine
DX: R09.1 Pleurisy (principal); R07.89 Other chest pain; I50.9 Heart failure, unspecified; K21.9 Gastro-esophageal reflux disease without esophagitis; F41.9 Anxiety disorder, unspecified; Z87.01 Personal history of pneumonia (recurrent); I48.91 Unspecified atrial fibrillation; Z88.0 Allergy status to penicillin; Z88.2 Allergy status to sulfonamides; Z88.6 Allergy status to analgesic agent; Z88.8 Allergy status to other drugs, medicaments and biological substances; Z79.899 Other long term (current) drug therapy
CPT/HCPCS: 71020; 80048; 83735; 84484; 85025; 85610; 85730; 93005; 99285

== ENCOUNTER 2016-10-29 19:21 | Inpatient (IN) | payer MEDICARE ==
--- NOTE | ~2016-10-29 | HP ---
History And Physical [address] [place]. [address] NAME: OTF WEBBER : 40 STATUS : ADM IN [facility]#: [id number] AGE: 75 ADM/REG DATE : 10/29/16 MR#: [id number] REPORT SERV DATE: 10/30/16 DICTATED BY: MINA MALIN DATE: 10/30/16 REPORT STATUS : Draft TRANSCRIBED BY: MODL DATE: 10/30/16 DATE OF ADMISSION: 10/29/2016 CHIEF COMPLAINT: A 75-year-old female with hypertrophic cardiomyopathy, now presenting with volume overload and shortness of breath. HISTORY OF PRESENTING ILLNESS: The patient's history was obtained through careful interview with the patient, , son, and sister, coupled with review of [facility] and [facility] medical records. The patient believes her history goes all the way back to 08/2016, when she had to be hospitalized for "double pneumonia" and she feels as if she never fully recovered from this illness. But over the last several nights, she has developed severe orthopnea. She has had to sleep in a recliner and still cannot sleep at night, and develops paroxysmal nocturnal dyspnea. She has an element of daytime dyspnea on exertion as well, but not as severe as nighttime shortness of breath. She has had a nonproductive cough worsened at night. She describes increasing abdominal distention, stating "I have a watermelon in my stomach" and she has noticed her waist has gotten larger and that her pants are tighter because of it. There is no actual pain related to it though. No chest pain. No back pain. No headache. No palpitations. She has had lightheadedness that she describes as mild in quality with orthostasis at times. No change of bowel or bladder habit. REVIEW OF SYSTEMS: Otherwise, 14-point review of systems was obtained and was negative. PAST MEDICAL HISTORY: 1. Hypertrophic cardiomyopathy, left ventricular hypertrophy first diagnosed in 2012. 2. Pneumonia, 08/2016. 3. Depression and anxiety. 4. Hypothyroidism. 5. Atrial flutter. 6. AICD for ventricular tachycardia, followed by Dr. Pearson. 7. Restless legs syndrome. 8. Bladder cancer, seen by Dr. Johnston. 9. Colon polyps, seen by Dr. Barrera. 10.B12 deficiency. History And Physical [address] [place]. [address] NAME: OTF WEBBER : 40 STATUS : ADM IN [facility]#: [id number] AGE: 75 ADM/REG DATE : 10/29/16 MR#: [id number] REPORT SERV DATE: 10/30/16 DICTATED BY: MINA MALIN DATE: 10/30/16 REPORT STATUS : Draft TRANSCRIBED BY: MODL DATE: 10/30/16 11.Chronic thrombocytopenia since 2005. PAST SURGICAL HISTORY: 1. AICD placement. 2. TURBT. 3. Right arm incision and drainage for cat bite abscess. 4. Hemorrhoidectomy. ALLERGIES: PENICILLIN, SULFA, ASPIRIN, ERYTHROMYCIN, METOPROLOL, AND BENADRYL. SOCIAL HISTORY: No tobacco abuse. No alcohol abuse. Is . Lives in [place], [place]. Has one son. FAMILY HISTORY: Mother with congestive heart failure and Parkinson's disease. Father with heart attack. CURRENT MEDICATIONS: Include eye drops, Lipitor 10 mg p.o. daily, vitamin D, Klonopin 0.5 mg p.o. daily and 1 mg at bedtime, vitamin B12, Cymbalta 60 mg p.o. b.i.d., Pepcid 20 mg p.o. b.i.d., iron supplement, Boniva every month, levothyroxine 50 mcg p.o. daily, melatonin 5 mg at bedtime, multivitamins, Requip 0.5 mg p.o. q.h.s., sotalol 40 mg p.o. b.i.d., trazodone 100 mg p.o. q.h.s., and vitamin B12. PHYSICAL EXAMINATION: VITAL SIGNS: Temperature 97.2, pulse 78, blood pressure 131/62, respiratory rate 18, and O2 saturation 92% on room air. GENERAL: A pleasant, cooperative female, but in evidence of some distress secondary to shortness of breath and abdominal distention. HEENT: Pupils equal, round, and reactive to light. No conjunctival pallor. No scleral icterus. Nares are patent. Oropharynx is clear of obstruction. Moist mucous membranes. NECK: Trachea midline. No thyromegaly. LYMPH: No cervical lymphadenopathy. No supraclavicular lymphadenopathy. RESPIRATORY: The patient has wet rales at the base of lungs. No wheezes, no rhonchi. A labored respiratory effort. CARDIOVASCULAR: Regular rate and rhythm. No murmurs, rubs, or gallops. No current extremity edema is appreciated,n although the patient has very tight-fitting Jobst stockings on. ABDOMEN: Seems distended by examination. It has indeed a sound on percussion that reminds one of a watermelon, but no tympanic resonance "like a drum." Nontender throughout though. No hepatosplenomegaly. DERMATOLOGICAL: Warm and dry. EXTREMITIES: No pallor, no cyanosis. PSYCHIATRIC: Normal affect. Good mood. Alert and oriented x3. LABORATORY DATA: Brain natriuretic peptide 653. Troponin 0.03. INR 1.1. Lactic acid 1.4. Liver enzymes within normal limits. White blood cell count 6.1, hemoglobin 12, hematocrit 37, platelets 104. Sodium 144, potassium 3.5, chloride 112, bicarb 25, BUN 17, creatinine 0.96, glucose 126. History And Physical [address] [address] NAME: OTF WEBBER : 40 STATUS : ADM IN [facility]#: [id number] AGE: 75 ADM/REG DATE : 10/29/16 MR#: [id number] REPORT SERV DATE: 10/30/16 DICTATED BY: MINA MALIN DATE: 10/30/16 REPORT STATUS : Draft TRANSCRIBED BY: FRANKLYN DATE: 10/30/16 STUDIES: 1. Chest x-ray by my own evaluation shows pulmonary edema, cardiomegaly, and left pleural effusion. 2. EKG by my own evaluation shows sinus rhythm. Incomplete right bundle-branch block with left anterior fascicular block. ASSESSMENT AND PLAN: 1. Diastolic congestive heart failure exacerbation. History of hypertrophic cardiomyopathy. Recheck an echocardiogram to define function. Place on IV diuretic. Continue beta-tarik. Add MANFRED inhibitor. 2. AICD. We will interrogate. 3. Chronic thrombocytopenia. 4. History of atrial flutter. Check telemetry. 5. History of bladder cancer. Check urinalysis. KPL/MODL Mina Malin M.D. / [id number] CC: MD Arsen Clark M.D. Gregory Keith Bruce, M.D.
--- NOTE | ~2016-10-29 | DS ---
Discharge Summary [facility] [address] [facility] [place]. [address] NAME: OTF WEBBER : 40 STATUS : DIS IN PAT#: [id number] AGE: 75 ADM/REG DATE : 10/29/16 MR#: [id number] REPORT SERV DATE: 11/01/16 DICTATED BY: GUILHERME VAZQUEZ DATE: 10/31/16 REPORT STATUS : Draft TRANSCRIBED BY: MODL DATE: 10/31/16 ADMISSION DATE: 10/29/2016 DISCHARGE DATE: 10/31/2016 DISCHARGE DIAGNOSES: 1. Acute on chronic diastolic heart failure, present on admission. Last known ejection fraction in August 2016 was 55%. 2. Chronic thrombocytopenia. 3. Atrial flutter by history. 4. Anxiety disorder. 5. Hypothyroidism. 6. Recent pneumonia. 7. AICD for ventricular tachycardia, followed by Dr. Pearson. 8. Restless legs syndrome. 9. History of bladder cancer, seen by Dr. Johnston. 10.Chronic B12 deficiency. CONSULTANTS DURING THIS HOSPITALIZATION: None. INVASIVE PROCEDURES DONE DURING THIS HOSPITALIZATION: None. BRIEF HISTORY OF PRESENT ILLNESS: The patient is a 75-year-old white female, admitted with shortness of breath and heart failure. For detailed history and physical exam, please see note dictated by Dr. Adi Henderson on 10/29/2016. HOSPITAL COURSE: After being admitted to the hospital, this patient was given a beta tarik. MANFRED inhibitor was added. There was no need for rechecking the echo as she has recently had an echo though we discontinued that. Her AICD was interrogated, and there were no events. Her heart rate remained stable on sotalol. She was given IV diuretics, and she continued to improve. She was able to be weaned off the O2. Yesterday, her chest x-ray still showed some persistent venous congestion and left pleural effusion, but the patient was feeling well, so it was decided that this patient could be discharged home to recover in the home setting. DISCHARGE DISPOSITION: Home. DISCHARGE ACTIVITY: As tolerated. DISCHARGE DIET: Low-sodium diet. DISCHARGE MEDICATIONS: Lipitor 10 mg once at bedtime, vitamin B12 of 1000 mcg IM once every 14 days, vitamin units once daily, Cymbalta 60 mg twice daily, lisinopril 5 mg once daily, Pepcid 20 mg twice daily and as needed, iron 150 mg twice daily, levothyroxine 50 mcg once daily, Requip 0.5 mg once at bedtime, sotalol 40 mg twice daily, Desyrel 100 mg once at bedtime, Klonopin 0.5 mg p.o. daily and 1 mg at bedtime, melatonin 5 mg p.o. at bedtime, vitamin B12 of 0.5 sublingual, Artificial Tears, Boniva 150 once every 30 days, and Discharge Summary [address] [address] NAME: OTF WEBBER : 40 STATUS : DIS IN PAT#: [id number] AGE: 75 ADM/REG DATE : 10/29/16 MR#: [id number] REPORT SERV DATE: 11/01/16 DICTATED BY: GUILHERME VAZQUEZ DATE: 10/31/16 REPORT STATUS : Draft TRANSCRIBED BY: FRANKLYN DATE: 10/31/16 Centrum one tablet daily. DISCHARGE FOLLOWUP: With Dr. Kelvin Angel in two weeks and with Dr. Arsen Elmore in one week for a repeat creatinine. More than 30 minutes spent planning this patient's discharge, reconciling medications, writing prescriptions, discussing hospital care, and follow up with the patient and documenting this discharge. DICTATED BY: Melissa Casiano/FRANKLYN Guilherme Vazquez M.D. / [id number] CC: Melissa Casiano M.D. Gregory Keith Bruce, M.D. Brian Negus, M.D.
[2016-10-29 20:35] LABS: BASOPHILS 0.5 %; BASOPHILS ABSOLUTE 0.03 10/3/uL (0.0-0.16); EOSINOPHILS 1.8 %; EOSINOPHILS ABSOLUTE 0.11 10/3/uL (0.0-0.53); HEMATOCRIT 37.5 % (36.0-48.0); HEMOGLOBIN 12.2 g/dL (12.0-16.0); IMMATURE GRANULOCYTES 0.2 %; IMMATURE GRANULOCYTES ABSOLUTE 0.01 10/3/uL (0.0-0.11); LYMPHOCYTES 15.8 %; LYMPHOCYTES ABSOLUTE 0.96 10/3/uL (0.67-4.30); MEAN CORPUS HGB CONC 32.5 g/dL (32.0-36.0); MEAN CORPUSCULAR HEMOGLOB 30.3 pg (26.0-34.0); MEAN CORPUSCULAR VOLUME 93.3 fL (80-100); MEAN PLATELET VOLUME 10.2 fL (9.2-13.0); MONOCYTES 5.6 %; MONOCYTES ABSOLUTE 0.34 10/3/uL (0.21-1.20); NEUTROPHILS 76.1 %; NEUTROPHILS ABSOLUTE 4.63 10/3/uL (2.02-8.40); RBC DISTRIBUTION WIDTH 15.6 % (12.0-16.0); RED CELL COUNT 4.02 10/6/uL (4.0-5.6); WHITE BLOOD CELLS 6.1 10/3/uL (4.5-10.5)
[2016-10-29 20:39] LABS: MANUAL DIFF NO %; PLATELET COUNT 104 10/3/uL (150-400)
[2016-10-29 20:45] LABS: INTERNATIONAL NORMAL RATI 1.1 UNITS (-); PARTIAL THROMBO TIME 26.3 SEC (22.5-37.2); PROTIME (NOT ORD) 14.4 SEC (12.0-14.5)
[2016-10-29 20:54] LABS: ALBUMIN 3.7 G/DL (3.5-5.0); ALKALINE PHOSPHATASE 86 U/L (45-117); BUN (BLOOD UREA NITROGEN) 17 MG/DL (6-23); CALCIUM, SERUM 8.6 MG/DL (8.5-10.4); CHEST PAIN PROFILE TAT 0 Hrs 23 Mins; CHLORIDE, SERUM 112 MMOL/L (96-112); CREATININE 0.96 MG/DL (0.55-1.02); DIRECT BILIRUBIN 0.2 MG/DL (0.0-0.4); GFR AFRICAN AMERICAN 67 ML/MIN (>=60); GFR NON AFRICAN AMERICAN 58 ML/MIN (>=60); INDIRECT BILIRUBIN(NOT ORDER) 0.8 MG/DL (0.1-0.9); POTASSIUM, SERUM 3.5 MMOL/L (3.5-5.3); SGOT(AST) 21 U/L (5-40); SGPT(ALT) 24 U/L (5-65); SODIUM, SERUM 144 MMOL/L (135-148); TOTAL PROTEIN 6.8 G/DL (6.0-8.5); TROPONIN I 0.03 NG/ML (<0.05)
[2016-10-29 21:06] LABS: CO2 (CARBON DIOXIDE) 25 MMOL/L (24-34); GLUCOSE, SERUM 129 MG/DL (60-99)
[2016-10-29] MEDS ORDERED: KLONO1 PO (22:25)
[2016-10-29] MEDS ORDERED: KLONO5 PO (22:25)
[2016-10-29] MEDS ORDERED: CYMBALTA60 PO (22:25)
[2016-10-29] MEDS ORDERED: REQUIP5 PO (22:26)
[2016-10-29] MEDS ORDERED: LEVOTHYROXIN50 MCG PO (22:26)
[2016-10-29] MEDS ORDERED: MELATONIN5 M1 PO (22:26)
[2016-10-29] MEDS ORDERED: VITAMIN B-12 PO (22:26)
[2016-10-29] MEDS ORDERED: PEP20 PO ×2 (22:27→22:28)
[2016-10-29] MEDS ORDERED: BION TEARS OPH (22:27)
[2016-10-29] MEDS ORDERED: TRAZ100 PO (22:28)
[2016-10-29] MEDS ORDERED: LIPITOR10 PO (22:28)
[2016-10-29] MEDS ORDERED: BETAPACE80 PO (22:28)
[2016-10-29] MEDS ORDERED: BONIVA150 MG PO (22:28)
[2016-10-29] MEDS ORDERED: FERREX 150150 MG PO (22:28)
[2016-10-29] MEDS ORDERED: VITAMIN D2000 UNIT PO (22:29)
[2016-10-29] MEDS ORDERED: CENTRUM PO (22:29)
[2016-10-29] MEDS ORDERED: B121000P IM (22:29)
[2016-10-30 04:42] LABS: BASOPHILS 0.6 %; BASOPHILS ABSOLUTE 0.03 10/3/uL (0.0-0.16); EOSINOPHILS 2.3 %; EOSINOPHILS ABSOLUTE 0.12 10/3/uL (0.0-0.53); HEMATOCRIT 38.1 % (36.0-48.0); HEMOGLOBIN 12.1 g/dL (12.0-16.0); IMMATURE GRANULOCYTES 0.2 %; IMMATURE GRANULOCYTES ABSOLUTE 0.01 10/3/uL (0.0-0.11); LYMPHOCYTES ABSOLUTE 0.96 10/3/uL (0.67-4.30); MEAN CORPUS HGB CONC 31.8 g/dL (32.0-36.0); MEAN CORPUSCULAR HEMOGLOB 29.8 pg (26.0-34.0); MEAN CORPUSCULAR VOLUME 93.8 fL (80-100); MEAN PLATELET VOLUME 10.2 fL (9.2-13.0); MONOCYTES 7.1 %; MONOCYTES ABSOLUTE 0.38 10/3/uL (0.21-1.20); NEUTROPHILS 71.8 %; NEUTROPHILS ABSOLUTE 3.83 10/3/uL (2.02-8.40); PLATELET COUNT 122 10/3/uL (150-400); RBC DISTRIBUTION WIDTH 15.4 % (12.0-16.0); RED CELL COUNT 4.06 10/6/uL (4.0-5.6); WHITE BLOOD CELLS 5.3 10/3/uL (4.5-10.5)
[2016-10-30 04:44] LABS: INTERNATIONAL NORMAL RATI 1.2 UNITS (-); MANUAL DIFF NO %; PARTIAL THROMBO TIME 29.7 SEC (22.5-37.2); PROTIME (NOT ORD) 14.8 SEC (12.0-14.5)
[2016-10-30 04:53] LABS: A/G RATIO 1.2 (0.7-1.9); ALBUMIN 3.6 G/DL (3.5-5.0); ALKALINE PHOSPHATASE 83 U/L (45-117); BUN (BLOOD UREA NITROGEN) 17 MG/DL (6-23); CALCIUM, SERUM 8.7 MG/DL (8.5-10.4); CHLORIDE, SERUM 108 MMOL/L (96-112); CO2 (CARBON DIOXIDE) 28 MMOL/L (24-34); CREATININE 1.05 MG/DL (0.55-1.02); GFR AFRICAN AMERICAN 60 ML/MIN (>=60); GFR NON AFRICAN AMERICAN 52 ML/MIN (>=60); GLUCOSE, SERUM 144 MG/DL (60-99); SGOT(AST) 20 U/L (5-40); SGPT(ALT) 23 U/L (5-65); SODIUM, SERUM 144 MMOL/L (135-148); TOTAL PROTEIN 6.6 G/DL (6.0-8.5); TROPONIN I 0.03 NG/ML (<0.05)
[2016-10-30 04:56] LABS: CK-MB 2.6 NG/ML; CPK 86 U/L (0-200)
[2016-10-30 06:12] LABS: ASCORBIC ACID (UR NOT ORDER) NEG (NEG); BILIRUBIN, URINE NEGATIVE (NEG); KETONE, URINE NEGATIVE (NEG); LEUKOCYTE ESTERASE(NOT OR NEG (NEG); WBC (NOT ORDERED) (RFLEX) 1 (0-5)
[2016-10-30 06:13] LABS: PROCALCITONIN <0.05 ng/mL (<0.5)
[2016-10-31 04:58] LABS: BUN (BLOOD UREA NITROGEN) 16 MG/DL (6-23); CALCIUM, SERUM 8.7 MG/DL (8.5-10.4); CHLORIDE, SERUM 106 MMOL/L (96-112); CO2 (CARBON DIOXIDE) 27 MMOL/L (24-34); CREATININE 0.96 MG/DL (0.55-1.02); FREE T4 1.09 NG/DL (0.76-1.46); GFR AFRICAN AMERICAN 67 ML/MIN (>=60); GFR NON AFRICAN AMERICAN 58 ML/MIN (>=60); POTASSIUM, SERUM 3.7 MMOL/L (3.5-5.3); SODIUM, SERUM 142 MMOL/L (135-148)
[2016-10-31 05:03] LABS: GLUCOSE, SERUM 97 MG/DL (60-99)
[2016-10-31] MEDS ORDERED: PRIN5 PO (13:29)
[2016-10-31] MEDS ORDERED: MICRO-K10 MEQ PO (13:33)
[2016-10-31] MEDS ORDERED: DEMA20 PO (13:33)
[2017-01-23] MEDS ORDERED: PRIN2.5 PO (16:33)
[2017-01-23] MEDS ORDERED: VITAMIN B-122500 MCG SL (16:34)
== END 2016-10-31 15:33 | disposition home or self-care (01) | DRG 292 ==
LOC: ER 19:21 → 2SO 22:10
PROVIDERS: Emergency Medicine; Hospitalist; Nurse Practitioner Family
PROC: 4B02XTZ Measurement of Cardiac Defibrillator, External Approach (ICD-10-PCS; principal; 2016-10-30)
DX: I50.33 Acute on chronic diastolic (congestive) heart failure (principal); I48.92 Unspecified atrial flutter; D69.6 Thrombocytopenia, unspecified; I42.2 Other hypertrophic cardiomyopathy; I45.10 Unspecified right bundle-branch block; I44.4 Left anterior fascicular block; F41.9 Anxiety disorder, unspecified; F32.9 Major depressive disorder, single episode, unspecified; E03.9 Hypothyroidism, unspecified; G25.81 Restless legs syndrome; E53.8 Deficiency of other specified B group vitamins; Z85.51 Personal history of malignant neoplasm of bladder; Z86.010 Personal history of colon polyps; Z98.890 Other specified postprocedural states; Z95.810 Presence of automatic (implantable) cardiac defibrillator; Z88.0 Allergy status to penicillin; Z88.1 Allergy status to other antibiotic agents; Z88.2 Allergy status to sulfonamides; Z88.8 Allergy status to other drugs, medicaments and biological substances; Z82.49 Family history of ischemic heart disease and other diseases of the circulatory system
CPT/HCPCS: 71010; 80048; 80053; 80076; 81001; 82550; 82553; 83605; 83735; 83880; 84132; 84145; 84439; 84443; 84484; 85025; 85610; 85730; 93005; 96374; 99284; A9270-GY; J1940